=== PATIENT | male | born 1990 | race Caucasian/White ===

== ENCOUNTER 2017-06-07 11:47 | Emergency (ER) | payer SELFPAY ==
[2017-06-07 11:58] VITALS: BP 141/72
[2017-06-07] MEDS ORDERED: Ondansetron 4 MG/2 ML SDV IVPUSH ONE (12:02)
[2017-06-07] MEDS ORDERED: Sodium Chloride 0.9% 10 ML Syringe FLUSH PRN (12:02)
[2017-06-07] MEDS ORDERED: HYDROmorphone 1 MG/ML Syringe IVPUSH ONE (12:03)
[2017-06-07] MEDS ORDERED: Ketorolac 30 MG/ML SDV IVPUSH ONE (12:03)
--- NOTE | 2017-06-07 12:11 | EDM.PDOC ---
ED HPI GENERAL MEDICAL PROBLEM - General Chief Complaint: Flank Pain Stated Complaint: BACK PAIN Time Seen by Provider: 06/07/17 11:58 Source of Information: Reports: Patient History Limitations: Reports: No Limitations - History of Present Illness INITIAL COMMENTS - FREE TEXT/NARRATIVE: The patient presents with right flank pain. This started just before arrival in the ED. He woke up this morning with a backache and it has increased tremendously. He has nausea and vomiting with it. He has no dysuria or hematuria. He has no diarrhea. He has a history of kidney stones. He also has crohns and about 3 years ago he had a partial colectomy. He has no fever, chills, cough, chest pain or shortness of breath. Onset: Sudden Duration: Hour(s): Location: Reports: Other (Right flank) Quality: Reports: Sharp Severity: Severe Improves with: Reports: None Worsens with: Reports: None Context: Reports: Activity (He woke up with a back ache) Associated Symptoms: Reports: Nausea/Vomiting. Denies: Chest Pain, Fever/Chills , Headaches, Shortness of Breath Right Flank Pain Score (Numeric/FACES): 10 - Related Data Allergies Allergy/AdvReac Type Severity Reaction Status Date / Time infliximab [From Remicade] Allergy Swelling Verified 06/07/17 12:02 Home Meds: Home Meds Tamsulosin HCl [Flomax] 0.4 mg PO DAILY #10 cap.er.24h 06/07/17 [Rx] oxyCODONE HCl/Acetaminophen [Percocet 5-325 mg Tablet] 1 - 2 each PO Q6HR PRN # 20 tablet 06/07/17 [Rx] Past Medical History Genitourinary History: Reports: Renal Calculus - Past Surgical History GI Surgical History: Reports: Appendectomy, Other (See Below) Other GI Surgeries/Procedures: parts of large intestines removeed Social & Family History - Tobacco Use Smoking Status *Q: Current Every Day Smoker Years of Tobacco use: 8 Packs/Tins Daily: 0.5 - Caffeine Use Caffeine Use: Reports: Energy Drinks - Recreational Drug Use Recreational Drug Use Frequency: Rarely ED ROS GENERAL - Review of Systems Review Of Systems: See Below Constitutional: Reports: No Symptoms HEENT: Reports: No Symptoms Respiratory: Reports: No Symptoms Cardiovascular: Reports: No Symptoms Endocrine: Reports: No Symptoms GI/Abdominal: Reports: No Symptoms : Reports: Flank Pain (right) Musculoskeletal: Reports: No Symptoms Skin: Reports: No Symptoms ED EXAM, RENAL/ - Physical Exam Exam: See Below Exam Limited By: No Limitations General Appearance: Alert, No Apparent Distress Ears: Normal External Exam Nose: Normal Inspection Head: Atraumatic, Normocephalic Neck: Normal Inspection Respiratory/Chest: No Respiratory Distress, Lungs Clear, Normal Breath Sounds Cardiovascular: Regular Rate, Rhythm, No Edema, No Murmur GI/Abdominal: Soft, No Organomegaly, No Mass, Tender (Moderate tenderness to the right lateral abdomen radiating to the flank) Back Exam: CVA Tenderness (R) Course - Vital Signs Last Recorded V/S: Last Vital Signs Temp 95.9 F 06/07/17 11:57 Pulse 62 06/07/17 12:20 Resp 20 06/07/17 11:57 BP 141/72 H 06/07/17 11:57 Pulse Ox 92 L 06/07/17 12:20 - Orders/Labs/Meds Orders: Active Orders 24 hr Category Date Time Status Peripheral IV Care [RC] . DIRECTED Care 06/07/17 12:02 Active Abdomen Pelvis wo Cont [CT] Stat Exams 06/07/17 12:02 Taken Sodium Chloride 0.9% [Normal Saline] 1,000 ml Med 06/07/17 12:15 Active IV ASDIRECTED Sodium Chloride 0.9% [Saline Flush] Med 06/07/17 12:02 Active 10 ml FLUSH ASDIRECTED PRN ED Antiemetic Medication Reflex [OM.PC] Stat Oth 06/07/17 12:02 Ordered Peripheral IV Insertion Adult [OM.PC] Stat Oth 06/07/17 12:02 Ordered Medication Orders Sodium Chloride (Normal Saline) 1,000 mls @ 125 mls/hr IV ASDIRECTED KIRK Last Admin: 06/07/17 12:12 Dose: 125 mls/hr Sodium Chloride (Saline Flush) 10 ml FLUSH ASDIRECTED PRN PRN Reason: Keep Vein Open Last Admin: 06/07/17 12:11 Dose: 10 ml Labs: Laboratory Tests 06/07/17 06/07/17 06/07/17 Range/Units 12:03 12:03 14:44 WBC 10.08 H (4.23-9.07) K/mm3 RBC 5.31 (4.63-6.08) M/mm3 Hgb 15.4 (13.7-17.5) gm/L Hct 42.9 (40.1-51.0) % MCV 80.8 (79.0-92.2) fl MCH 29.0 (25.7-32.2) pg MCHC 35.9 H (32.2-35.5) g/dl RDW Std Deviation 37.2 (35.1-43.9) fL Plt Count 246 (163-337) K/mm3 MPV 11.1 (9.4-12.3) fl Neut % (Auto) 53.4 (34.0-67.9) % Lymph % (Auto) 32.5 (21.8-53.1) % Dale % (Auto) 10.3 (5.3-12.2) % Eos % (Auto) 3.1 (0.8-7.0) Baso % (Auto) 0.4 (0.1-1.2) % Neut # (Auto) 5.38 (1.78-5.38) K/mm3 Lymph # (Auto) 3.28 (1.32-3.57) K/mm3 Dale # (Auto) 1.04 H (0.30-0.82) K/mm3 Eos # (Auto) 0.31 (0.04-0.54) K/mm3 Baso # (Auto) 0.04 (0.01-0.08) K/mm3 Sodium 140 (136-145) mEq/L Potassium 3.9 (3.5-5.1) mEq/L Chloride 106 (98-107) mEq/L Carbon Dioxide 20 L (21-32) mEq/L Anion Gap 17.9 H (5-15) BUN 12 (7-18) mg/dL Creatinine 1.3 (0.7-1.3) mg/dL Est Cr Clr Drug Dosing 79.40 mL/min Estimated GFR (MDRD) > 60 (>60) mL/min BUN/Creatinine Ratio 9.2 L (14-18) Glucose 140 H (74-106) mg/dL Calcium 9.1 (8.5-10.1) mg/dL Total Bilirubin 1.6 H (0.2-1.0) mg/dL AST 17 (15-37) U/L ALT 41 (16-63) U/L Alkaline Phosphatase 80 (46-116) U/L Total Protein 7.6 (6.4-8.2) g/dl Albumin 4.1 (3.4-5.0) g/dl Globulin 3.5 gm/dL Albumin/Globulin Ratio 1.2 (1-2) Lipase 112 (73-393) U/L Urine Color Yellow (Yellow) Urine Appearance Slt cloudy H (Clear) Urine pH 6.0 (5.0-8.0) Ur Specific [place] > or = 1.030 (1.005-1.030) Urine Protein 2+ H (Negative) Urine Glucose (UA) Negative (Negative) Urine Ketones Negative (Negative) Urine Occult Blood 3+ H (Negative) Urine Nitrite Negative (Negative) Urine Bilirubin 1+ H (Negative) Urine Urobilinogen 0.2 (0.2-1.0) Ur Leukocyte Esterase Negative (Negative) Urine RBC 75-100 H (0-5) /hpf Urine WBC 0-5 (0-5) /hpf Ur Epithelial Cells 0-5 (0-5) /hpf Urine Bacteria Rare (FEW) /hpf Urine Mucus Moderate H (FEW) /hpf Meds: Medications Generic Name Dose Route Start Last Admin Trade Name Freq PRN Reason Stop Dose Admin Sodium Chloride 1,000 mls @ 125 mls/hr 06/07/17 12:15 06/07/17 12:12 Normal Saline IV 125 mls/hr ASDIRECTED KIRK Administration Sodium Chloride 10 ml 06/07/17 12:02 06/07/17 12:11 Saline Flush FLUSH 10 ml ASDIRECTED PRN Administration Keep Vein Open Discontinued Medications Generic Name Dose Route Start Last Admin Trade Name Freq PRN Reason Stop Dose Admin Hydromorphone HCl 1 mg 06/07/17 12:03 06/07/17 12:11 Dilaudid IVPUSH 06/07/17 12:04 1 mg ONETIME ONE Administration Ketorolac Tromethamine 30 mg 06/07/17 12:03 06/07/17 12:11 Toradol IVPUSH 06/07/17 12:04 30 mg ONETIME ONE Administration Ondansetron HCl 4 mg 06/07/17 12:02 06/07/17 12:11 Zofran IVPUSH 06/07/17 12:03 4 mg ONETIME ONE Administration - Re-Assessments/Exams Free Text/Narrative Re-Assessment/Exam: 06/07/17 12:10 I ordered an IV NS at 125mL/hr, zofran 4mg IV, toradol 30mg IV, dilaudid 1mg IV , labs, UA and a CT of his abdomen and pelvis. 06/07/17 13:51 His WBC is slightly elevated at 10.08. His anion gap is elevated at 17.9. His glucose is a little elevated at 140. His total bili is elevated at 1.6. His CT shows proximal mid right ureteral obstructing calculus measuring about 2mm. He feels much better. He has not urinated for us yet. 06/07/17 15:17 His UA shows blood but no UTI. I will discharge him home. Departure - Departure Time of Disposition: 15:20 Disposition: Home, Self-Care 01 Condition: Good Clinical Impression: Ureteric colic, Kidney stone on right side, Ureteral calculus, right - Discharge Information Prescriptions: oxyCODONE HCl/Acetaminophen [Percocet 5-325 mg Tablet] 1 - 2 each PO Q6HR PRN # 20 tablet PRN Reason: Pain Tamsulosin HCl [Flomax] 0.4 mg PO DAILY #10 cap.er.24h Referrals: Ezra Thomas MD [Physician] - 1 Week Forms: ED Department Discharge Additional Instructions: Drink plenty of fluids. Take the flomax daily. Take the percocet as needed for pain. Follow up with Dr Thomas. Please return if you are worse. - My Orders Last 24 Hours: My Active Orders 06/07/17 12:02 Peripheral IV Care [RC] . DIRECTED Abdomen Pelvis wo Cont [CT] Stat Sodium Chloride 0.9% [Saline Flush] 10 ml FLUSH ASDIRECTED PRN ED Antiemetic Medication Reflex [OM.PC] Stat Peripheral IV Insertion Adult [OM.PC] Stat 06/07/17 12:15 Sodium Chloride 0.9% [Normal Saline] 1,000 ml IV ASDIRECTED - Assessment/Plan Last 24 Hours: My Active Orders 06/07/17 12:02 Peripheral IV Care [RC] . DIRECTED Abdomen Pelvis wo Cont [CT] Stat Sodium Chloride 0.9% [Saline Flush] 10 ml FLUSH ASDIRECTED PRN ED Antiemetic Medication Reflex [OM.PC] Stat Peripheral IV Insertion Adult [OM.PC] Stat 06/07/17 12:15 Sodium Chloride 0.9% [Normal Saline] 1,000 ml IV ASDIRECTED
[2017-06-07] MEDS ORDERED: Sodium Chloride 0.9% 1,000 ML IV SCH (12:15)
--- NOTE | 2017-06-08 08:36 | CT ---
CT abdomen and pelvis Technique: Multiple axial sections were obtained from above the dome of the diaphragm inferiorly through the pubic symphysis. Intravenous and oral contrast was not utilized. Study has been performed as a ureteral stone protocol. Comparison: No previous study. Findings: Right sided proximal ureteral dilatation is seen. This is due to an obstructing stone within the mid to proximal right ureter measuring approximately 4.6 mm. No additional abnormal calcifications are seen along the course of the ureters. No abnormal calcifications are seen within the kidneys. Other findings: Visualized lung bases show minimal atelectasis on the left side. Noncontrast appearance of the liver and spleen are within normal limits. Adrenal glands show no nodule. Noncontrast appearance of the pancreas is within normal limits. Aorta shows no aneurysmal dilatation. No retroperitoneal adenopathy is seen. Previous colonic surgery is noted with anastomotic sutures being seen. Single surgical clip noted within the right lower abdomen. No pelvic mass or adenopathy is seen. No free fluid or inflammatory change is seen. Bone window settings were reviewed which appears within normal limits for the patient's age. Impression: 1. 4.6 mm obstructing stone within the mid to proximal right ureter causing proximal hydronephrosis. 2. Previous bowel surgery. 3. No additional abnormality is identified on noncontrast CT study of the abdomen and pelvis. Diagnostic code #3 I agree with preliminary report issued by [facility] ([facility] preliminary report dictated on 06/07/17, 2:15 PM Central Time)
== END 2017-06-07 15:30 | disposition home or self-care (01) ==
LOC: JD.ED 11:47
DX: N13.2 Hydronephrosis with renal and ureteral calculous obstruction (principal); F17.210 Nicotine dependence, cigarettes, uncomplicated; Z88.8 Allergy status to other drugs, medicaments and biological substances; Z79.899 Other long term (current) drug therapy; Z87.442 Personal history of urinary calculi; Z90.49 Acquired absence of other specified parts of digestive tract
CPT/HCPCS: 36415; 74176; 80053; 81001; 83690; 85025; 96361; 96374; 96375; 99284; J1170; J1885; J2405; J7040; J7050

== ENCOUNTER 2018-02-27 15:24 | Emergency (ER) | payer SELFPAY ==
[2018-02-27 15:36] VITALS: BP 140/97
--- NOTE | 2018-02-27 15:38 | EDM.PDOC ---
ED HPI GENERAL MEDICAL PROBLEM - General Chief Complaint: Abdominal Pain Stated Complaint: ABDOMINAL PAIN Time Seen by Provider: 02/27/18 15:37 Source of Information: Reports: Patient History Limitations: Reports: No Limitations - History of Present Illness INITIAL COMMENTS - FREE TEXT/NARRATIVE: 28-year-old male attends the ED with increased right lower quadrant abdominal pain over period of 2 weeks with increased diarrhea anywhere from 8-12 loose stools per day depending what he eats. Patient was diagnosed with Crohn's disease at age 18. He believes he had symptoms for about 4 years prior to that. Sequelae he has been tried on all of the remittive agents with numerous side effects and incomplete relief of his symptoms. Proximal before years ago he ended up with partial resection of his terminal ileus and 8 appendectomy. Apparently he also had part of his stomach resected through a laparoscope. The last 4 years he he has done relatively well living on a very sparse diet of cooked chicken with no seasoning and avoids all red meats. He uses a protein drink in the morning to try and help keep his proteins up. Over the last 2 weeks due to increased pain and flareup of Crohn's disease he is lost about 12 pounds of weight normally is about 160 pounds and is down to around 146. He states that everything he tries to eat goes right through him. Increased right lower quadrant abdominal pain. We considered the most was his stools are turning dark black in color as if he may be bleeding inside. He states he does have hemorrhoids and often has bright red bleeding per rectum or bright red bleeding with wiping. He has had problems with IV contrast material the past getting itchy. He has had no other surgeries. He reports that 2 of his brothers also have Crohn's disease. Onset: Gradual Onset Date: 02/14/18 Duration: Day(s): Location: Reports: Abdomen Quality: Reports: Ache (Particularly right lower quadrant abdominal pain with increased diarrhea.), Stabbing (Occasionally pain is sharp and stabbing.) Severity: Moderate Improves with: Reports: Rest (Not eating) Worsens with: Reports: Other (Eating.) Context: Reports: Other. Denies: Activity, Exercise, Lifting, Sick Contact, Trauma Associated Symptoms: Reports: Loss of Appetite, Malaise, Other. Denies: Confusion, Chest Pain, Cough, cough w sputum, Diaphoresis, Fever/Chills, Headaches, Nausea/Vomiting (Toprol weight loss over the last 2 weeks), Rash, Seizure, Shortness of Breath, Syncope, Weakness Treatments [employer]: Reports: Other (see below) Right Lower Abdomen Pain Score (Numeric/FACES): 4 - Related Data Allergies Allergy/AdvReac Type Severity Reaction Status Date / Time infliximab [From Remicade] Allergy Swelling Verified 02/27/18 15:29 Home Meds: Home Meds predniSONE [Deltasone] 20 mg PO ASDIRECTED #23 tablet 02/27/18 [Rx] Past Medical History Gastrointestinal History: Reports: Chronic Diarrhea, Inflammatory Bowel Disease (Has Crohn's disease diagnosed at age 18. Surgery performed 4-1/2 years ago with resection of part of his terminal ileum appendectomy and apparently part of his stomach was removed.) Genitourinary History: Reports: Renal Calculus - Past Surgical History GI Surgical History: Reports: Appendectomy, Other (See Below) Other GI Surgeries/Procedures: parts of large intestines removeed Social & Family History - Tobacco Use Smoking Status *Q: Current Every Day Smoker Years of Tobacco use: 8 Packs/Tins Daily: 0.5 - Caffeine Use Caffeine Use: Reports: Energy Drinks - Recreational Drug Use Recreational Drug Use Frequency: Rarely - Living Situation & Occupation Living situation: Reports: Single Occupation: Employed ED ROS GENERAL - Review of Systems Review Of Systems: See Below Constitutional: Reports: Malaise, Weakness, Fatigue, Decreased Appetite (12 pounds in the last 2 weeks), Weight Loss. Denies: Fever, Chills HEENT: Reports: No Symptoms Respiratory: Reports: No Symptoms Cardiovascular: Reports: No Symptoms Endocrine: Reports: Fatigue GI/Abdominal: Reports: Abdominal Pain (Right lower quadrant constantly. Worsened by eating), Diarrhea (Heart diarrhea between 8 and 12 dark black stools per day) : Reports: No Symptoms Musculoskeletal: Reports: No Symptoms Skin: Reports: No Symptoms Neurological: Reports: No Symptoms Psychiatric: Reports: No Symptoms Hematologic/Lymphatic: Reports: No Symptoms ED EXAM, GI/ABD - Physical Exam Exam: See Below Exam Limited By: No Limitations General Appearance: Alert, WD/WN, No Apparent Distress, Other (Color looks fairly good.) Eyes: Bilateral: Normal Appearance Throat/Mouth: Normal Inspection, Normal Lips, Normal Oropharynx. No: Normal Teeth Head: Atraumatic, Normocephalic Neck: Normal Inspection, Supple, Non-Tender, Full Range of Motion. No: Carotid Bruit, Lymphadenopathy (L), Lymphadenopathy (R) Respiratory/Chest: No Respiratory Distress, Lungs Clear, Normal Breath Sounds Cardiovascular: Normal Peripheral Pulses, Regular Rate, Rhythm, No Edema, No Gallop, No Murmur GI/Abdominal Exam: Soft, No Abnormal Bruit, Tender (He is also tender along the right costal margin in the distribution of his liver.). No: Rigid, Rebound ( There is minimal guarding no rebound or rigidity.) Back Exam: Normal Inspection, Full Range of Motion. No: CVA Tenderness (L), CVA Tenderness (R) Extremities: Normal Inspection, Normal Range of Motion, Non-Tender, No Pedal Edema Neurological: Alert, Oriented, CN II-XII Intact, Normal Cognition Psychiatric: Normal Affect, Normal Mood Skin Exam: Warm, Dry, Intact, Normal Color, No Rash Course - Vital Signs Last Recorded V/S: Last Vital Signs Temp 36.9 C 02/27/18 15:29 Pulse 88 02/27/18 15:29 Resp 14 02/27/18 15:29 BP 140/97 H 02/27/18 15:29 Pulse Ox 99 02/27/18 15:29 - Orders/Labs/Meds Labs: Laboratory Tests 02/27/18 02/27/18 02/27/18 Range/Units 16:05 16:05 16:05 WBC 6.79 (4.23-9.07) K/mm3 RBC 5.56 (4.63-6.08) M/mm3 Hgb 16.0 (13.7-17.5) gm/L Hct 45.7 (40.1-51.0) % MCV 82.2 (79.0-92.2) fl MCH 28.8 (25.7-32.2) pg MCHC 35.0 (32.2-35.5) g/dl RDW Std Deviation 38.7 (35.1-43.9) fL Plt Count 252 (163-337) K/mm3 MPV 10.5 (9.4-12.3) fl Neutrophils % (Manual) 48 (40-60) % Band Neutrophils % 0 (0-10) % Lymphocytes % (Manual) 40 (20-40) % Atypical Lymphs % 0 % Monocytes % (Manual) 7 (2-10) % Eosinophils % (Manual) 4 (0.8-7.0) % Basophils % (Manual) 1 (0.2-1.2) Platelet Estimate Adequate Plt Morphology Comment Normal RBC Morph Comment Normal ESR 6 (0-15) mm/hr PT 10.9 (9.5-12.1) SECONDS INR 1.00 APTT 29 (24-31) SECONDS Sodium (136-145) mEq/L Potassium (3.5-5.1) mEq/L Chloride (98-107) mEq/L Carbon Dioxide (21-32) mEq/L Anion Gap (5-15) BUN (7-18) mg/dL Creatinine (0.7-1.3) mg/dL Est Cr Clr Drug Dosing mL/min Estimated GFR (MDRD) (>60) mL/min BUN/Creatinine Ratio (14-18) Glucose (74-106) mg/dL Calcium (8.5-10.1) mg/dL Magnesium (1.8-2.4) mg/dl Total Bilirubin (0.2-1.0) mg/dL AST (15-37) U/L ALT (16-63) U/L Alkaline Phosphatase (46-116) U/L C-Reactive Protein (<1.0) mg/dL Total Protein (6.4-8.2) g/dl Albumin (3.4-5.0) g/dl Globulin gm/dL Albumin/Globulin Ratio (1-2) //18 Range/Units 16:05 WBC (4.23-9.07) K/mm3 RBC (4.63-6.08) M/mm3 Hgb (13.7-17.5) gm/L Hct (40.1-51.0) % MCV (79.0-92.2) fl MCH (25.7-32.2) pg MCHC (32.2-35.5) g/dl RDW Std Deviation (35.1-43.9) fL Plt Count (163-337) K/mm3 MPV (9.4-12.3) fl Neutrophils % (Manual) (40-60) % Band Neutrophils % (0-10) % Lymphocytes % (Manual) (20-40) % Atypical Lymphs % % Monocytes % (Manual) (2-10) % Eosinophils % (Manual) (0.8-7.0) % Basophils % (Manual) (0.2-1.2) Platelet Estimate Plt Morphology Comment RBC Morph Comment ESR (0-15) mm/hr PT (9.5-12.1) SECONDS INR APTT (24-31) SECONDS Sodium 140 (136-145) mEq/L Potassium 4.3 (3.5-5.1) mEq/L Chloride 103 (98-107) mEq/L Carbon Dioxide 25 (21-32) mEq/L Anion Gap 16.3 H (5-15) BUN 12 (7-18) mg/dL Creatinine 1.2 (0.7-1.3) mg/dL Est Cr Clr Drug Dosing 85.26 mL/min Estimated GFR (MDRD) > 60 (>60) mL/min BUN/Creatinine Ratio 10.0 L (14-18) Glucose 84 (74-106) mg/dL Calcium 9.4 (8.5-10.1) mg/dL Magnesium 2.2 (1.8-2.4) mg/dl Total Bilirubin 0.9 (0.2-1.0) mg/dL AST 16 (15-37) U/L ALT 50 (16-63) U/L Alkaline Phosphatase 106 (46-116) U/L C-Reactive Protein < 0.2 (<1.0) mg/dL Total Protein 8.2 (6.4-8.2) g/dl Albumin 4.3 (3.4-5.0) g/dl Globulin 3.9 gm/dL Albumin/Globulin Ratio 1.1 (1-2) Meds: Medications Discontinued Medications Generic Name Dose Route Start Last Admin Trade Name Freq PRN Reason Stop Dose Admin Diatrizoate Meglum/Diatrizoate Sod 90 ml 02/27/18 17:35 02/27/18 17:53 Gastrografin 37% PO 02/27/18 17:36 90 ml ONETIME ONE Administration - Radiology Interpretation Free Text/Narrative:: 28-year-old male with known Crohn's disease since age 18 he 10 years presents to the ED with what sounds like a flareup of Crohn's disease involving the right lower quadrant of his abdomen and an associated 12 pound weight loss over the last 2 weeks. Increased diarrhea from his usual 6 bowel movements today to between 8 and 12 bowel movements a day depending if he eats or not. States stools are turning dark blackish in color and is concerning for persistent bleeding from the GI tract. He has external hemorrhoids which bleed on contact after bowel movement and with wiping. To his knowledge he is never had a perianal fistula. He has had surgery on his abdomen with resection of part of his distal ileum appendix and he states his stomach. This was done in [facility]. He states since that time he has done very well as long as he watches his diet very closely although he continues to have 4-6 diarrhea stools per day. His usual weight is 160 is down about 12 pounds over the last 2 weeks. Examination reveals mild tenderness in the right lower quadrant with slight guarding but no rebound tenderness or signs of abscess. He is afebrile. Plan CT of the abdomen will be done with oral contrast only as he's developed itching with oral IV contrast in the past. Routine labs including a sedimentation rate and CRP to be done. - Re-Assessments/Exams Free Text/Narrative Re-Assessment/Exam: 02/27/18 17:21 labs are back.White count is 6.79 with a normal differential of 40% neutrophils and no bands hemoglobin is 16.0 with hematocrit of 45.7. Platelet count is 252,000. PT is 10.9 with an INR of 1.0 and a PTT of 29. Sodium is 140 with a potassium of 4.3. Chloride was 103 with a bicarbonate of 25. Anion gap is mildly elevated at 16.3. BUNs 12 with creatinine of 1.2. BUNs 10. Glucose is 84 with a calcium of 9.4. Magnesium normal at 2.2. Liver function normal C-reactive protein is less than 0.2. Sedimentation rate is 6. Total protein is 8.2 with an albumin fraction of 4.3. Therefore labs look really good with no sign of anemia meaning there is been no significant blood loss per rectum in spite of dark-colored stools. He has just about finished his oral contrast and CT of the abdomen and pelvis will be performed. 02/27/18 18:15 CT of the abdomen has been completed with oral contrast only. It appears that he has had a right hemicolectomy with removal of the cecum and appendix and part of the distal ileum. The anastomosis is high up in the right upper quadrant. The small bowel is mildly dilated at the anastomosis suggesting anastomosis might be a little bit stenotic. No inflammatory changes or bowel wall thickening is appreciated in all areas of the small bowel or large bowel. Therefore I'm going to treat him with a short course of steroids 20 mg of prednisone twice a day for 9 days and then 20 mg once a day for 5 further days and off. is happy with this treatment plan and will follow-up daily with Dr. Parker if any further problems occur. Departure - Departure Time of Disposition: 18:25 Disposition: Home, Self-Care 01 Condition: Fair Clinical Impression: Abdominal pain Qualifiers: Abdominal location: right lower quadrant Qualified Code(s): R10.31 - Right lower quadrant pain Exacerbation of Crohn's disease Qualifiers: Digestive disease complication type: with rectal bleeding Qualified Code(s): K50.911 - Crohn's disease, unspecified, with rectal bleeding - Discharge Information Prescriptions: predniSONE [Deltasone] 20 mg PO ASDIRECTED #23 tablet Referrals: PCP,None [Primary Care Provider] - Forms: ED Department Discharge Additional Instructions: Evaluation the emergency room today in regards to suspect flareup of Crohn's disease with increased right cristhian-abdominal pain and increased diarrhea that is very dark in color as 2 weeks with associated 10-12 Palm weight loss. Lab work reveals a normal hemoglobin and therefore if bleeding is occurring it is very minimal. It shows a normal white count which is against any signs of an infective process. It shows a normal sedimentation rate at 6 which is a good marker for Crohn's disease exacerbation. Also reveals a normal CRP which is another marker for infection or inflammation. CT of the abdomen was carried out with oral contrast only and it reveals that no active Crohn's disease other than at the anastomosis of the small bowel with the right upper colon. Surgery has been performed with a right hemicolectomy being formed with removal of the distal ileum and appendix. At this time the flareup or of the Crohn's disease appears to be very minor and mostly surrounds the anastemosis--the junction of the small bowel and large bowel. I'm going to suggest a 14 day treatment plan with steroid prednisone 20 mg with breakfast and supper for the next 9 days and then one in the morning only for another 5 days and then off of medication. Suggest follow-up with Dr. Parker who is in family practice on the opposite side of the hospital on second floor. To make an appointment please call [phone]. This is mostly if you continue to have problems or fail to improve on our treatment plan. He could facilitate follow-up with a machine shop worker or another colonoscopy.
[2018-02-27] MEDS ORDERED: Diatrizoate Meglumine/Diatrizoate Sodium 37% 120 ML Bottle PO ONE (17:35)
--- NOTE | 2018-02-27 18:18 | CT ---
CT abdomen and pelvis Technique: Multiple axial sections were obtained from slightly below the dome of the diaphragm inferiorly to the pubic symphysis. Intravenous contrast not utilized. Oral contrast has been given. Comparison: Previous noncontrast CT exam of 06/07/17. Findings: Visualized lung bases shows nothing acute. Noncontrast appearance of the visualized liver appears within normal limits. Spleen appears within normal limits. Adrenal glands show no abnormality. Kidneys show an incidental extrarenal pelvis on the left side. No abnormal calcifications are seen. No ureteral dilatation is seen. Aorta shows no aneurysmal dilatation. Noncontrast appearance of the pancreas is within normal limits. Surgical anastomotic sutures are noted at the junction of the colon and small bowel. Previous right colectomy appears to have been performed. Slightly dilated distal small bowel is seen at the junction to the colon but no bowel wall thickening is appreciated. No inflammatory change is seen within the mesentery around the bowel. No pelvic mass or adenopathy is seen. Impression: 1. Slightly dilated distal small bowel at the junction to the colon. Previous right colectomy is noted. 2. No additional abnormality is seen on CT study of the abdomen and pelvis. No inflammatory change or bowel wall thickening is appreciated. Diagnostic code #2
== END 2018-02-27 18:45 | disposition home or self-care (01) ==
LOC: JD.ED 15:24
DX: K50.911 Crohn's disease, unspecified, with rectal bleeding (principal); F17.210 Nicotine dependence, cigarettes, uncomplicated; Z90.49 Acquired absence of other specified parts of digestive tract; Z88.8 Allergy status to other drugs, medicaments and biological substances
CPT/HCPCS: 36415; 74176; 80053; 83735; 85025; 85610; 85652; 85730; 86140; 99284; Q9963

== ENCOUNTER 2018-12-26 17:14 | Emergency (ER) | payer MEDICAID, OTHER ==
[2018-12-26 17:23] VITALS: BP 135/86
--- NOTE | 2018-12-26 17:49 | EDM.PDOC ---
ED HPI GENERAL MEDICAL PROBLEM - General Chief Complaint: Upper Extremity Injury/Pain Stated Complaint: RIGHT HAND PAIN Time Seen by Provider: 12/26/18 17:25 Source of Information: Reports: Patient, RN Notes Reviewed History Limitations: Reports: No Limitations - History of Present Illness INITIAL COMMENTS - FREE TEXT/NARRATIVE: The patient states that he noticed a lump to the volar aspect of his right wrist , near the base of his right thumb, about 10 minutes prior to coming to the ED. It is painless. He has not noticed it prior to today. He is concerned, because he states that he uses his hands constantly. No recent injury to the area, that the patient recalls. The patient does not have a PCP. Right Hand Pain Score (Numeric/FACES): 6 - Related Data Allergies Allergy/AdvReac Type Severity Reaction Status Date / Time infliximab [From Remicade] Allergy Swelling Verified 12/26/18 17:19 Home Meds: Home Meds . [No Known Home Meds] 12/26/18 [History] Past Medical History Gastrointestinal History: Reports: Inflammatory Bowel Disease (Crohn disease) Genitourinary History: Reports: Renal Calculus - Past Surgical History GI Surgical History: Reports: Appendectomy (Incidental, around 2012), Other ( See Below) (Terminal ileectomy and partial gastrectomy around 2012) Social & Family History - Tobacco Use Smoking Status *Q: Current Every Day Smoker Years of Tobacco use: 7 Packs/Tins Daily: 0.2 Packs/Tins Daily Comment: Down from 0.3 ppd - Caffeine Use Caffeine Use: Reports: Energy Drinks - Alcohol Use Alcohol Use History: No - Recreational Drug Use Recreational Drug Use: No - Living Situation & Occupation Living situation: Reports: Single, with Significant Other (Girlfriend), with Family (Brother) Occupation: Employed ([employer]) ED ROS GENERAL - Review of Systems Review Of Systems: ROS reveals no pertinent complaints other than HPI. ED EXAM, GENERAL - Physical Exam Exam: See Below Exam Limited By: No Limitations General Appearance: Alert, WD/WN, No Apparent Distress Extremities: Other (Small, essentially nontender ganglion noted to the volar aspect of the patient's right wrist, radial aspect, near the base of his right thumb. Neurovascular status of the right upper extremity is intact.) Course - Vital Signs Last Recorded V/S: Last Vital Signs Temp 36.9 C 12/26/18 17:19 Pulse 76 12/26/18 17:19 Resp 15 12/26/18 17:19 BP 135/86 12/26/18 17:19 Pulse Ox 98 12/26/18 17:19 - Re-Assessments/Exams Free Text/Narrative Re-Assessment/Exam: 12/26/18 17:44 The patient has a ganglion to the volar aspect of his right wrist, near the base of his thumb. I offered to aspirate the ganglion, followed by injecting a steroid such as Kenalog, however, the patient would prefer to discuss his options with Dr. Sorenson, who may also recommend aspiration and steroid injection, but may offer definitive surgical treatment, as well. Departure - Departure Time of Disposition: 17:45 Disposition: Home, Self-Care 01 Condition: Good Clinical Impression: Ganglion, right wrist - Discharge Information *PRESCRIPTION DRUG MONITORING PROGRAM REVIEWED*: Not Applicable *COPY OF PRESCRIPTION DRUG MONITORING REPORT IN PATIENT OLMAN: Not Applicable Referrals: PCP,None [Primary Care Provider] - Eugenio Sorenson MD [Physician] - Additional Instructions: You were seen in the emergency room for a bump on the palm side of your right wrist. On examination, you have a ganglion cyst. Drainage of the ganglion and filling it with steroids was offered, but declined. Please follow-up with the hand surgeon Dr. Eugenio Sorenson at the next available appointment, for further evaluation and treatment. If any other problems, please do not hesitate to return to the ER.
== END 2018-12-26 17:55 | disposition home or self-care (01) ==
LOC: JD.ED 17:14
DX: M67.431 Ganglion, right wrist (principal); F17.210 Nicotine dependence, cigarettes, uncomplicated; Z88.8 Allergy status to other drugs, medicaments and biological substances
CPT/HCPCS: 99282; 99283

== ENCOUNTER 2020-01-19 00:38 | Emergency (ER) | payer BC ==
[2020-01-19 00:51] VITALS: BP 139/78; PULSE 102
[2020-01-19] MEDS ORDERED: predniSONE 20 MG Tab PO ONE (00:58)
[2020-01-19] MEDS ORDERED: diphenhydrAMINE 50 MG Cap PO ONE (00:58)
[2020-01-19] MEDS ORDERED: Doxycycline 100 MG Cap PO ONE (00:59)
[2020-01-19] MEDS ORDERED: Hydrocortisone 1% Crm 30 GM Tube TOP ONE (01:00)
--- NOTE | 2020-01-19 01:04 | EDM.PDOC ---
ED HPI GENERAL MEDICAL PROBLEM - General Chief Complaint: Skin Complaint Stated Complaint: RASH ON BOTH HANDS Time Seen by Provider: 01/19/20 00:58 Source of Information: Reports: Patient History Limitations: Reports: No Limitations - History of Present Illness INITIAL COMMENTS - FREE TEXT/NARRATIVE: 29-year-old male presents to the ED due to severe rash on both hands wrists and forearms that developed over the last 48 hours. He states the itch is so bad that he cannot sleep. He works at [employer] and cannot remember getting into any new chemicals of the workplace that would have caused this rash. No changing gloves etc. On examination he appears to have a contact dermatitis formal sandpaper inflammation of the dorsal hands and wrists bilaterally. We could not identify in the ED what the trigger was. Something is irritated the skin badly over the last for 5 days. He also has a rash on both lower extremities particular the right lateral extremity which is a bit different. It is burning more than itching. Eyes rash on any other parts of his body. He has no history of eczema. He denies being in a hot tub recently. Onset: Gradual Onset Date: 01/16/20 Duration: Day(s):, Getting Worse Location: Reports: Upper Extremity, Left (Left dorsal wrist hand and forearm), Upper Extremity, Right (Right hand dorsal hand wrist and forearm), Lower Extremity, Left (Less of a rash on the left side more around the ankle. This has the appearance of a folliculitis), Lower Extremity, Right (The lateral leg from below the knee to the ankle) Quality: Reports: Other (Rash is burning and terribly itchy.) Severity: Moderate Improves with: Reports: None (Try to take some Zyrtec tonight with no relief) Worsens with: Reports: None Context: Reports: Other (Spontaneous occurrence with unknown trigger.). Denies : Activity, Exercise, Lifting, Sick Contact, Trauma Associated Symptoms: Reports: No Other Symptoms (Severe pruritus at rash site), Other Treatments PATROL AGENT: Reports: Other (see below) (Tach at home.) - Related Data Allergies Allergy/AdvReac Type Severity Reaction Status Date / Time infliximab [From Remicade] Allergy Swelling Verified 01/19/20 00:51 Home Meds: Home Meds Doxycycline [Vibramycin] 100 mg PO BID #14 cap 01/19/20 [Rx] predniSONE [Prednisone] 20 mg PO BID #10 tablet 01/19/20 [Rx] Past Medical History Gastrointestinal History: Reports: Inflammatory Bowel Disease Other Gastrointestinal History: crohns disease Genitourinary History: Reports: Renal Calculus - Past Surgical History GI Surgical History: Reports: Appendectomy, Other (See Below) Social & Family History - Tobacco Use Smoking Status *Q: Current Some Day Smoker Years of Tobacco use: 10 Packs/Tins Daily: 0.5 - Caffeine Use Caffeine Use: Reports: None - Recreational Drug Use Recreational Drug Use: Yes Recreational Drug Type: Reports: Marijuana/Hashish Recreational Drug Use Frequency: Socially - Living Situation & Occupation Living situation: Reports: Single, with Significant Other (Girlfriend), with Family (Brother) Occupation: Employed ([employer]) ED ROS GENERAL - Review of Systems Review Of Systems: See Below Constitutional: Reports: Fatigue (Not being able to sleep). Denies: Fever, Chills, Malaise, Weakness HEENT: Reports: No Symptoms Respiratory: Reports: No Symptoms Cardiovascular: Reports: No Symptoms Endocrine: Reports: No Symptoms GI/Abdominal: Reports: No Symptoms Musculoskeletal: Reports: Other (Toyed arthritis) Skin: Reports: Other (Currently being seen for a rash that has developed on his dorsal hands wrists and forearms over the last 2 to 3 days is also rash) Neurological: Reports: No Symptoms ( primarily right lower extremity.) Psychiatric: Reports: No Symptoms Hematologic/Lymphatic: Reports: No Symptoms Immunologic: Reports: No Symptoms ED EXAM, SKIN/RASH Exam: See Below Exam Limited By: No Limitations General Appearance: Alert, WD/WN, Mild Distress, Other (Distress due to the pruritus.) Skin: Other (She has a folliculitis-like rash with inflammation around the hairs pores of his right lateral leg and ankle similarly slightly around the left ankle as well. This is a much different appearance than the rash on his hands. It appears to be a folliculitis. Rash on his hands particularly distal to the thumb dorsal hand and radial aspect of the wrist is that of a contact dermatitis with raised maculopapular rash which is very pruritic. Thing has caused his skin to react to some chemical that is been applied to it was within the last for 5 days. Has a sandpaper feel to it.) Course - Vital Signs Last Recorded V/S: Last Vital Signs Temp 36.4 C 01/19/20 00:48 Pulse 102 H 01/19/20 00:48 Resp 20 01/19/20 00:48 BP 139/78 01/19/20 00:48 Pulse Ox 100 01/19/20 00:48 - Orders/Labs/Meds Meds: Medications Discontinued Medications Generic Name Dose Route Start Last Admin Trade Name Veronica PRN Reason Stop Dose Admin Diphenhydramine HCl 50 mg 01/19/20 00:58 Benadryl PO 01/19/20 00:59 ONETIME ONE Doxycycline Hyclate 100 mg 01/19/20 00:59 Vibramycin PO 01/19/20 01:00 ONETIME ONE Hydrocortisone 4 gm 01/19/20 01:00 Hydrocortisone 1% Crm TOP 01/19/20 01:01 ONETIME ONE Prednisone 30 mg 01/19/20 00:58 Prednisone PO 01/19/20 00:59 ONETIME ONE - Radiology Interpretation Free Text/Narrative:: 29-year-old male attends the ED with a very pruritic rash particularly on his hands that is developed over the last 2 to 3 days. He works at [employer] and cannot think of any chemicals or new globs or any a thing else that he would have gotten into that would have caused this rash. The rash is eczematous and most likely a contact dermatitis from exposure to something that is gone on his skin on the last for 5 days. It is a maculopapular raised rash with some excoriations particularly anatomical snuffbox area and radial aspects of the wrist. Treatment will be topical hydrocortisone 1% cream twice daily. Prednisone 30 mg in the ED then 20 mg twice daily for 5 days with breakfast and supper. Benadryl 50 mg now to help him sleep tonight and he can pick some up to use at bedtime as needed. The rash on his lower extremity particular right leg shows more of a folliculitis with small pustules developing at the hair follicles. He denies being in a hot tub recently. There is a similar type rash around the left ankle. This will be treated with doxycycline 1 high milligrams twice daily for the next 5 days with the first time was provided in the ED. Up if not markedly improved in 5 days time. Departure - Departure Time of Disposition: 01:01 Disposition: Home, Self-Care 01 Condition: Fair Clinical Impression: Folliculitis Contact dermatitis Qualifiers: Contact dermatitis type: irritant Contact dermatitis trigger: unspecified trigger Qualified Code(s): L24.9 - Irritant contact dermatitis, unspecified cause - Discharge Information *PRESCRIPTION DRUG MONITORING PROGRAM REVIEWED*: Not Applicable *COPY OF PRESCRIPTION DRUG MONITORING REPORT IN PATIENT OLMAN: Not Applicable Prescriptions: Doxycycline [Vibramycin] 100 mg PO BID #14 cap predniSONE [Prednisone] 20 mg PO BID #10 tablet Instructions: Contact Dermatitis, [id number] Referrals: PCP,None [Primary Care Provider] - Forms: ED Department Discharge Additional Instructions: Evaluation in the emergency room this morning in regards to a contact dermatitis rash of both upper extremities involving the dorsal aspect of your hands the wrists and lower portions of your forearms. This rash is secondary to an allergic trigger i.e. something is gotten onto your skin and created the allergic reaction sometime within the last for 5 days likely. It can be soaps and/or detergents. It can be perfumes. It can be petrochemical's or other oils etc. It is Benadryl 50 mg every 6 hours as needed for relief of itch but she cannot take it during the daytime as it makes you quite sleepy. You were given a dose in the ED to get some relief from the itch overnight. You are also started on medication prednisone 30 mg in the ED. You will need to take 20 mg twice daily with breakfast and supper for 5 more days which should bring the breath rash under very prompt control. Medicine takes about 6 hours to work however. The rash on your lower extremities is a bit different and shows signs of a folliculitis which means low-grade staph infection along the hair follicles. It can sometimes be caused by clothing rubbing on the skin or boots etc. This is treated differently with an oral antibiotic doxycycline 100 mg twice daily for 5 days. First dose was given in the ED. Also given a dose of hydrocortisone cream that she can apply to the rash on both your legs and your wrists and forearms twice daily ideally until better. Not completely back to normal in 5 days time then you should be reviewed. Sepsis Event Note - Evaluation Sepsis Screening Result: No Definite Risk - Focused Exam Vital Signs: Vital Signs Temp Pulse Resp BP Pulse Ox 01/19/20 00:48 36.4 C 102 H 20 139/78 100 Date Exam was Performed: 01/19/20 Time Exam was Performed: 01:06
== END 2020-01-19 01:15 | disposition home or self-care (01) ==
LOC: JD.ED 00:38
DX: L24.9 Irritant contact dermatitis, unspecified cause (principal); L73.9 Follicular disorder, unspecified; F17.210 Nicotine dependence, cigarettes, uncomplicated
CPT/HCPCS: 99282; A9270; 99283

== ENCOUNTER 2020-01-30 19:58 | Emergency (ER) | payer BC ==
[2020-01-30 20:11] VITALS: BP 127/81; PULSE 88
--- NOTE | 2020-01-30 20:14 | EDM.PDOC ---
ED HPI GENERAL MEDICAL PROBLEM - General Chief Complaint: Abdominal Pain Stated Complaint: CROHNS FLARE UP Time Seen by Provider: 01/30/20 20:06 Source of Information: Reports: Patient, RN Notes Reviewed - History of Present Illness INITIAL COMMENTS - FREE TEXT/NARRATIVE: 29-year-old male with history of Crohn's disease has had worsening abdominal pain for the past 7 to 10 days. Pain is been primarily left abdomen, comes and goes but becoming more bothersome especially over the past several days. It yesterday was really bad. He has not eaten because he has observed that eating does make the pain worse. Has had nausea, no current vomiting. Is been having diarrhea. He has noticed some blood with the diarrhea today. Fever chills. No chest pain or difficulty breathing. He has been drinking water and other fluids. Left Abdomen Pain Score (Numeric/FACES): 3 - Related Data Allergies Allergy/AdvReac Type Severity Reaction Status Date / Time infliximab [From Remicade] Allergy Swelling Verified 01/19/20 00:51 Home Meds: Home Meds predniSONE [Prednisone] 50 mg PO DAILY #7 tablet 01/30/20 [Rx] Past Medical History Gastrointestinal History: Reports: Inflammatory Bowel Disease Other Gastrointestinal History: crohns disease Genitourinary History: Reports: Renal Calculus - Past Surgical History GI Surgical History: Reports: Appendectomy, Other (See Below) Social & Family History - Tobacco Use Smoking Status *Q: Current Every Day Smoker Years of Tobacco use: 8 Packs/Tins Daily: 0.5 - Caffeine Use Caffeine Use: Reports: Coffee - Recreational Drug Use Recreational Drug Use: No Other Recreational Drug Type: every few months - Living Situation & Occupation Living situation: Reports: Single, with Significant Other (Girlfriend), with Family (Brother) Occupation: Employed ([employer]) ED ROS GENERAL - Review of Systems Review Of Systems: See Below Constitutional: Denies: Fever, Chills, Diaphoresis HEENT: Reports: No Symptoms Respiratory: Denies: Shortness of Breath Cardiovascular: Denies: Chest Pain GI/Abdominal: Reports: Abdominal Pain, Diarrhea, Hematochezia, Nausea. Denies: Vomiting Musculoskeletal: Reports: No Symptoms Skin: Reports: No Symptoms Neurological: Reports: No Symptoms ED EXAM, GI/ABD - Physical Exam Exam: See Below General Appearance: Alert, No Apparent Distress Throat/Mouth: Normal Inspection, Normal Oropharynx Head: No: Facial Swelling Neck: Supple Respiratory/Chest: No Respiratory Distress, Lungs Clear, Normal Breath Sounds Cardiovascular: Regular Rate, Rhythm GI/Abdominal Exam: Tender (L abd). No: Guarding, Rebound Extremities: Normal Inspection, Normal Range of Motion Neurological: Alert, Oriented, No Motor/Sensory Deficits Skin Exam: Warm, Dry, Normal Color Course - Vital Signs Last Recorded V/S: Last Vital Signs Temp 98.4 F 01/30/20 20:09 Pulse 88 01/30/20 20:09 Resp 20 01/30/20 20:09 BP 127/81 01/30/20 20:09 Pulse Ox 96 01/30/20 20:09 - Orders/Labs/Meds Orders: Active Orders 24 hr Category Date Time Status Peripheral IV Care [RC] . DIRECTED Care 01/30/20 20:24 Active Sodium Chloride 0.9% [Saline Flush] Med 01/30/20 20:24 Active 10 ml FLUSH ASDIRECTED PRN Peripheral IV Insertion Adult [OM.PC] Stat Oth 01/30/20 20:24 Ordered Medication Orders Sodium Chloride (Saline Flush) 10 ml FLUSH ASDIRECTED PRN PRN Reason: Keep Vein Open Last Admin: 01/30/20 20:39 Dose: 10 ml Labs: Laboratory Tests 01/30/20 01/30/20 Range/Units 20:34 20:34 WBC 9.51 H (4.23-9.07) K/mm3 RBC 5.50 (4.63-6.08) M/mm3 Hgb 16.4 (13.7-17.5) gm/dl Hct 45.7 (40.1-51.0) % MCV 83.1 (79.0-92.2) fl MCH 29.8 (25.7-32.2) pg MCHC 35.9 H (32.2-35.5) g/dl RDW Std Deviation 39.0 (35.1-43.9) fL Plt Count 258 (163-337) K/mm3 MPV 10.4 (9.4-12.3) fl Neut % (Auto) 69.6 H (34.0-67.9) % Lymph % (Auto) 20.4 L (21.8-53.1) % Cannon % (Auto) 7.9 (5.3-12.2) % Eos % (Auto) 1.5 (0.8-7.0) Baso % (Auto) 0.3 (0.1-1.2) % Neut # (Auto) 6.62 H (1.78-5.38) K/mm3 Lymph # (Auto) 1.94 (1.32-3.57) K/mm3 Cannon # (Auto) 0.75 (0.30-0.82) K/mm3 Eos # (Auto) 0.14 (0.04-0.54) K/mm3 Baso # (Auto) 0.03 (0.01-0.08) K/mm3 Sodium 138 (136-145) mEq/L Potassium 4.2 (3.5-5.1) mEq/L Chloride 101 (98-107) mEq/L Carbon Dioxide 25 (21-32) mEq/L Anion Gap 16.2 H (5-15) BUN 13 (7-18) mg/dL Creatinine 1.1 (0.7-1.3) mg/dL Est Cr Clr Drug Dosing 92.64 mL/min Estimated GFR (MDRD) > 60 (>60) mL/min BUN/Creatinine Ratio 11.8 L (14-18) Glucose 90 (74-106) mg/dL Calcium 10.0 (8.5-10.1) mg/dL Total Bilirubin 1.3 H (0.2-1.0) mg/dL AST 56 H (15-37) U/L ALT 272 H (16-63) U/L Alkaline Phosphatase 72 (46-116) U/L Total Protein 7.7 (6.4-8.2) g/dl Albumin 4.2 (3.4-5.0) g/dl Globulin 3.5 gm/dL Albumin/Globulin Ratio 1.2 (1-2) Meds: Medications Generic Name Dose Route Start Last Admin Trade Name Freq PRN Reason Stop Dose Admin Sodium Chloride 10 ml 01/30/20 20:24 01/30/20 20:39 Saline Flush FLUSH 10 ml ASDIRECTED PRN Administration Keep Vein Open Discontinued Medications Generic Name Dose Route Start Last Admin Trade Name Freq PRN Reason Stop Dose Admin Methylprednisolone Sodium Succinate 125 mg 01/30/20 20:24 01/30/20 20:37 Solu-Medrol IVPUSH 01/30/20 20:25 125 mg ONETIME ONE Administration Departure - Departure Time of Disposition: 21:33 Disposition: Home, Self-Care 01 Condition: Fair Clinical Impression: Abdominal pain Qualifiers: Abdominal location: right lower quadrant Qualified Code(s): R10.31 - Right lower quadrant pain Crohn's disease Qualifiers: Gastrointestinal tract location: unspecified location Digestive disease complication type: without complication Qualified Code(s): K50.90 - Crohn's disease, unspecified, without complications - Discharge Information Prescriptions: predniSONE [Prednisone] 50 mg PO DAILY #7 tablet Referrals: Ofelia Zhu MD [Primary Care Provider] - Forms: ED Department Discharge Additional Instructions: You have been given Solu-Medrol IV while here in the emergency department this evening. Continue prednisone 50 mg every morning for the next 7 days. See your regular clinic provider in about 3 to 4 days for recheck, call for appointment in the morning. Return to the ED as needed. Sepsis Event Note - Evaluation Sepsis Screening Result: No Definite Risk - Focused Exam Vital Signs: Vital Signs Temp Pulse Resp BP Pulse Ox 01/30/20 20:09 98.4 F 88 20 127/81 96 Date Exam was Performed: 01/30/20 Time Exam was Performed: 21:32 - My Orders Last 24 Hours: My Active Orders 01/30/20 20:24 Peripheral IV Care [RC] . DIRECTED Sodium Chloride 0.9% [Saline Flush] 10 ml FLUSH ASDIRECTED PRN Peripheral IV Insertion Adult [OM.PC] Stat - Assessment/Plan Last 24 Hours: My Active Orders 01/30/20 20:24 Peripheral IV Care [RC] . DIRECTED Sodium Chloride 0.9% [Saline Flush] 10 ml FLUSH ASDIRECTED PRN Peripheral IV Insertion Adult [OM.PC] Stat
[2020-01-30] MEDS ORDERED: methylPREDNISolone Sodium Succinate 125 MG/2 ML SDV IVPUSH ONE (20:24)
[2020-01-30] MEDS ORDERED: Sodium Chloride 0.9% 10 ML Syringe FLUSH PRN (20:24)
== END 2020-01-30 21:56 | disposition home or self-care (01) ==
LOC: JD.ED 19:58
DX: K50.90 Crohn's disease, unspecified, without complications (principal); F17.210 Nicotine dependence, cigarettes, uncomplicated; Z90.49 Acquired absence of other specified parts of digestive tract; Z87.442 Personal history of urinary calculi; Z88.8 Allergy status to other drugs, medicaments and biological substances; Z79.899 Other long term (current) drug therapy
CPT/HCPCS: 36415; 80053; 85025; 96374; 99284; J2930

== ENCOUNTER 2020-07-26 00:22 | Emergency (ER) | payer SELFPAY ==
[2020-07-26 00:43] VITALS: BP 132/83; PULSE 87
[2020-07-26] MEDS ORDERED: methylPREDNISolone Sodium Succinate 125 MG/2 ML SDV ONE (01:25)
--- NOTE | 2020-07-26 07:11 | EDM.PDOC ---
ED HPI GENERAL MEDICAL PROBLEM - General Chief Complaint: Gastrointestinal Problem Stated Complaint: CROHNS FLAREUP Time Seen by Provider: 07/26/20 00:55 Source of Information: Reports: Patient History Limitations: Reports: No Limitations - History of Present Illness INITIAL COMMENTS - FREE TEXT/NARRATIVE: 30-year-old male presents to the ED for evaluation of generalized abdominal pain but primarily right lower quadrant. He was diagnosed with Crohn's disease at age 18. He has tried numerous remittive agents including Humira and methotrexate. Eventually he ended up with resection of approximately 3 feet of his terminal ileum. After surgery he did fairly well for about 8 years. He is started on a new medication over the last 3 months to reduce inflammation but he feels it is not working. He has lost approximately 25 pounds of weight in the last 2 months. Used to weigh 170 and is down to about 145 pounds. He states if he eats he develops diarrhea. He also develops increasing abdominal cramping pain. He does not think there is any blood in the diarrhea but occasionally he will get bright red blood when he wipes. He states some of the stool seems to quite black in color. He is trying to eat protein shakes and drink lots of Gatorade and Powerade. Chief complaint tonight is pain. He is hoping for steroids to help reduce the inflammatory response from acute Crohn's flareup. Onset: Unknown/Unsure (Pain is been gradually getting worse over the last 2 months.) Duration: Chronic, Getting Worse Location: Reports: Abdomen (Constant abdominal pain worsened by eating due to Crohn's disease.) Quality: Reports: Ache, Sharp, Stabbing Severity: Moderate (7-8 out of 10. Currently 2 out of 10 at my time of my exam.) Improves with: Reports: Other Worsens with: Reports: Eating (Just drinking fluids.) Context: Reports: Other (Crohn's disease with chronic diarrhea.). Denies: Activity ( Worse if he tries to eat solids.), Exercise, Lifting, Sick Contact, Trauma Associated Symptoms: Reports: Loss of Appetite, Malaise (5 pound weight loss over the last 2 months), Nausea/Vomiting (Occasional nausea no vomiting), Other Treatments [employer]: Reports: Acetaminophen Abdominal Pain Score (Numeric/FACES): 2 - Related Data Allergies Allergy/AdvReac Type Severity Reaction Status Date / Time infliximab [From Remicade] Allergy Swelling Verified 07/26/20 00:43 Home Meds: Home Meds Ustekinumab [Stelara] 1 dose IM ASDIRECTED 07/26/20 [History] Past Medical History Gastrointestinal History: Reports: Inflammatory Bowel Disease Other Gastrointestinal History: crohns disease Genitourinary History: Reports: Renal Calculus - Past Surgical History GI Surgical History: Reports: Appendectomy, Colonoscopy, EGD, Other (See Below) (Partial small bowel resection I believe terminal ileum due to Crohn's disease. Is suspect that he may have lost a portion of his distal cecum as well.) Social & Family History - Tobacco Use Smoking Status *Q: Current Every Day Smoker Years of Tobacco use: 10 Packs/Tins Daily: 0.3 - Caffeine Use Caffeine Use: Reports: Coffee, Tea - Recreational Drug Use Recreational Drug Use: Yes Recreational Drug Type: Reports: Marijuana/Hashish - Living Situation & Occupation Living situation: Reports: Single, with Significant Other (Girlfriend), with Family (Brother) Occupation: Employed ([employer]) ED ROS GENERAL - Review of Systems Review Of Systems: See Below Constitutional: Reports: Malaise, Weakness, Fatigue, Decreased Appetite (Creased appetite because of eats any solids he has severe abdominal cramping pain which limits his ability to work and worsens his diarrhea.), Weight Loss (A 5 pound weight loss over the last 2 months. Used to weigh 170 now down to about 145.). Denies: Fever, Chills HEENT: Reports: No Symptoms Respiratory: Reports: No Symptoms Cardiovascular: Reports: No Symptoms Endocrine: Reports: Fatigue GI/Abdominal: Reports: Abdominal Pain (See history of present illness.), Diarrhea (Neck diarrhea), Nausea ( usually 6-8 times daily.). Denies: Vomiting : Reports: No Symptoms Musculoskeletal: Reports: No Symptoms Skin: Reports: No Symptoms Neurological: Reports: No Symptoms Psychiatric: Reports: No Symptoms Hematologic/Lymphatic: Reports: No Symptoms Immunologic: Reports: No Symptoms ED EXAM, GI/ABD - Physical Exam Exam: See Below Exam Limited By: No Limitations General Appearance: Alert, WD/WN, Mild Distress, Thin, Other (Temperature is 36.4 with a heart rate of 87. Respiratory is 18 BP 1 3283 pulse ox 97% room air) Eyes: Bilateral: Normal Appearance (No blepharal pallor or scleral icterus.) Throat/Mouth: Normal Inspection, Normal Lips, Normal Oropharynx Head: Atraumatic, Other Neck: Normal Inspection, Supple, Non-Tender, Full Range of Motion. No: Lymphadenopathy (L), Lymphadenopathy (R) Respiratory/Chest: No Respiratory Distress, Lungs Clear, Normal Breath Sounds, No Accessory Muscle Use, Chest Non-Tender Cardiovascular: Normal Peripheral Pulses, Regular Rate, Rhythm, No Edema, No Murmur, No Rub, Tachycardia GI/Abdominal Exam: Soft, No Organomegaly, No Mass, Pelvis Stable, Guarding (Right lower quadrant), Tender (It is throughout the right lower quadrant of the abdomen with), Abnormal Bowel Sounds, Other (He has surgical scars from laparoscopic surgery and potential resection of small bowel Roni abdomen.). No: Distended (All sounds are mildly hyperactive in all 4 quadrants.), Rigid, Rebound Rectal (Males) Exam: Other (He has no evidence of any perianal fissures or fistulas.) Back Exam: Normal Inspection, Full Range of Motion. No: CVA Tenderness (L), CVA Tenderness (R) Extremities: Normal Inspection, Normal Range of Motion, Non-Tender, No Pedal Edema Neurological: Alert, Oriented, CN II-XII Intact, Normal Cognition, Normal Gait Psychiatric: Normal Affect, Normal Mood Skin Exam: Warm, Dry, Intact, Normal Color, No Rash Course - Vital Signs Last Recorded V/S: Last Vital Signs Temp 36.4 C 07/26/20 00:38 Pulse 87 07/26/20 00:38 Resp 18 07/26/20 00:38 BP 132/83 07/26/20 00:38 Pulse Ox 97 07/26/20 00:38 - Orders/Labs/Meds Meds: Medications Discontinued Medications Generic Name Dose Route Start Last Admin Trade Name Freq PRN Reason Stop Dose Admin Methylprednisolone Sodium Succinate Confirm 07/26/20 01:25 Solu-Medrol Administered 07/26/20 01:26 Dose 125 mg .ROUTE .STK-MED ONE - Radiology Interpretation Free Text/Narrative:: 30-year-old male with a history of Crohn's disease diagnosed at age 17 presents to the ED due to an acute flareup of Crohn's disease with significant abdominal pain and inability to eat. Every time he eats he gets severe abdominal cramping pain and worsens his diarrhea. He has lost 25 pounds of weight in the last 2 months. Plan : Saline lock. Given Solu-Medrol 125 mg IV. 9 will be to discharge him on prednisone 20 mg twice daily with breakfast and supper for the next 6 days and then 1 tab in the morning only for another 6 days without having to wean him from steroids. If his symptom complex does not improve he will require long-term steroids with a plan to wean him off more slowly. He has plans to see a algebra tutor in the near future. He feels that the Stelara that he is currently using for the last 2 months for inflammatory bowel disease control is not helping. Departure - Departure Time of Disposition: 01:30 Disposition: Home, Self-Care 01 Condition: Fair Clinical Impression: Abdominal pain Qualifiers: Abdominal location: right lower quadrant Qualified Code(s): R10.31 - Right lower quadrant pain Crohn's disease Qualifiers: Gastrointestinal tract location: unspecified location Digestive disease complication type: without complication Qualified Code(s): K50.90 - Crohn's disease, unspecified, without complications - Discharge Information *PRESCRIPTION DRUG MONITORING PROGRAM REVIEWED*: Not Applicable *COPY OF PRESCRIPTION DRUG MONITORING REPORT IN PATIENT OLMAN: Not Applicable Referrals: PCP,None [Primary Care Provider] - Forms: ED Department Discharge Additional Instructions: Evaluation in the emergency room this morning in regards to increased abdominal pain as of late due to flareup of Crohn's disease. Current 2-month treatment with Stelara which is a inflammatory modulator has not helped you. Unfortunately continued to lose weight because of inability eat due to exacerbation of pain. After discussion with you was decided to place you on a course of steroids. You will be given Solu-Medrol 125 mg IV in the department. You will then start prednisone 20 mg twice daily breakfast and supper for 6 days and then once in the morning for another 6 days to see if this will provide some relief of abdominal pain and inflammation. Advised follow-up with algebra tutor as soon as possible since the Stelara is not working. Sepsis Event Note (ED) - Evaluation Sepsis Screening Result: No Definite Risk - Focused Exam Vital Signs: Vital Signs Temp Pulse Resp BP Pulse Ox 07/26/20 00:38 36.4 C 87 18 132/83 97
== END 2020-07-26 01:30 | disposition home or self-care (01) ==
LOC: JD.ED 00:22
DX: K50.90 Crohn's disease, unspecified, without complications (principal); F17.210 Nicotine dependence, cigarettes, uncomplicated; Z88.8 Allergy status to other drugs, medicaments and biological substances; Z90.49 Acquired absence of other specified parts of digestive tract
CPT/HCPCS: 36415; 80053; 85007; 85027; 86140; 96374; 99283; 99284-25; J2930